=== PATIENT | female | born 1945 | race Caucasian/White ===

== ENCOUNTER 2016-12-10 11:14 | Inpatient (IN) | payer OTHER, MEDICARE ==
[2016-12-10] VITALS (10 sets, daily range): BP systolic 112–176; BP diastolic 66–83; PULSE 96–107; RESP 18–36; TEMP 98.1–99.9; O2SAT 83–98
[~2016-12-10] VITALS: Ht 167.6 cm; Wt 64.1 kg
[~2016-12-10 11:14] MED LIST: ADVA250A INH; ALBU17I INH; METH4PAK PO; OMEP20TA39 PO; SPIRCAP INH
[2016-12-10] MEDS ORDERED: SODIUM CHLORIDE 0.9% FLUSH 10 ML FLUSH IVF PRN (11:30)
[2016-12-10] MEDS ORDERED: SODIUM CHLOR 0.9% 1000 ML INJ 1,000 ML IV SCH (11:30)
[2016-12-10] MEDS ORDERED: methylPREDNISolone SOD SUCC 125 MG/2 ML VIAL IVP ONE (11:30)
--- NOTE | 2016-12-10 11:34 | PD ---
HPI Chief Complaint: Respiratory Distress Time Seen by Provider: 11:21 Travel History International Travel<30 days: No Contact w/Intl Traveler<30days: No Traveled to known affect area: No History of Present Illness HPI This 71-year-old woman history of COPD presents emergency department complaining of worsening shortness of breath. She states for the past couple weeks she's been a little bit worse than normal. She normally is on oxygen just as needed but has been having or continuously for the past several days, she's had minimal cough but no other URI symptoms. No productive cough. No fevers or chills. No chest pain. Today she had significant worsening shortness of breath and so came to the emergency department. She's been taking all her medications regularly. Despite that, today they were not helping. History Past Medical History Narrative Medical COPD GERD History depression Menopausal: Yes Social History Alcohol Use: Yes (FEW DRINKS ONCE PER WEEK) Tobacco Use: Yes (STILL SMOKING; SMOKED UP TO 1.5PKS/DAY X 40YRS) Allergies-Medications (Allergen,Severity, Reaction): Coded Allergies: Penicillin (Verified Adverse Reaction, Severe, FIGUEREDO, 12/10/16) Reported Meds & Prescriptions Reported Meds & Active Scripts Active Reported Lovastatin 10 Mg Tab 10 Mg PO HS Albuterol Neb (Albuterol Sulfate) 2.5 Mg/0.5 Ml Neb 2.5 Mg NEB Q3-4HR PRN Note: The Albuterol Sulfate Inhalation Solution is concentrated and must be diluted. Read complete instructions carefully before using. Prednisone 10 Mg Tab 10 Mg PO DAILY Omeprazole 20 Mg Tab 20 Mg PO DAILY Advair Diskus Inh (Fluticasone-Salmeterol Inh) 250-50 Mcg/Blist Aer 2 Puff INH BID Rinse mouth after use. Proventil Hfa 6.7 GM Inh (Albuterol Sulfate) 90 Mcg/Act Aer 2 Puff INH Q4-6H PRN Review of Systems Except as stated in HPI: all other systems reviewed are Neg Physical Exam Narrative GENERAL: Well-appearing 71-year-old woman, significant respiratory distress. Able to speak in short sentences. SKIN: Focused skin assessment warm/dry. HEAD: Atraumatic. Normocephalic. EYES: Pupils equal and round. No scleral icterus. No injection or drainage. ENT: No nasal bleeding or discharge. Mucous membranes pink and moist. NECK: Trachea midline. No JVD. CARDIOVASCULAR: Regular rate and rhythm. No murmur appreciated. RESPIRATORY: Moderate respiratory distress. Able to speak in short sentences. Pulmonary exam she has poor air movement with squeaking expiratory wheezing. GASTROINTESTINAL: Abdomen soft, non-tender, nondistended. Hepatic and splenic margins not palpable. MUSCULOSKELETAL: No obvious deformities. No edema. NEUROLOGICAL: Awake and alert. No obvious cranial nerve deficits. Motor grossly within normal limits. Normal speech. Data Data Last Documented VS Vital Signs Date Time Temp Pulse Resp B/P Pulse Ox O2 Delivery O2 Flow Rate FiO2 12/10/16 12:00 92 Nasal Cannula 2 12/10/16 11:35 104 30 12/10/16 11:23 99.9 176/83 Orders Complete Blood Count With Diff (12/10/16 11:21) Comprehensive Metabolic Panel (12/10/16 11:21) B-Type Natriuretic Peptide (12/10/16 11:21) Act Partial Throm Time (Ptt) (12/10/16 11:21) Prothrombin Time / Inr (Pt) (12/10/16 11:21) Magnesium (Mg) (12/10/16 11:21) Troponin I (12/10/16 11:21) Arterial Blood Gas (Abg) (12/10/16 11:21) Blood Culture (12/10/16 11:21) Iv Access Insert/Monitor (12/10/16 11:21) Electrocardiogram (12/10/16 11:21) Ecg Monitoring (12/10/16 11:21) Oximetry (12/10/16 11:21) Oxygen Administration (12/10/16 11:21) Chest, Single Ap (12/10/16 11:21) Sodium Chloride 0.9% Flush (Ns Flush) (12/10/16 11:30) Methylprednisolone So Succ Inj (Solumedr (12/10/16 11:30) Albuterol-Ipratropium Neb (Duoneb Neb) (12/10/16 11:30) Lactic Acid (12/10/16 11:21) Sodium Chlor 0.9% 1000 Ml Inj (Ns 1000 M (12/10/16 11:30) Azithromycin Inj (Zithromax Inj) (12/10/16 12:30) Admit Order (Ed Use Only) (12/10/16 ) Labs Laboratory Tests Test 12/10/16 12/10/16 11:20 11:40 White Blood Count 11.6 TH/MM3 Red Blood Count 4.97 MIL/MM3 Hemoglobin 14.2 GM/DL Hematocrit 43.0 % Mean Corpuscular Volume 86.4 FL Mean Corpuscular Hemoglobin 28.5 PG Mean Corpuscular Hemoglobin 33.0 % Concent Red Cell Distribution Width 15.1 % Platelet Count 310 TH/MM3 Mean Platelet Volume 8.3 FL Neutrophils (%) (Auto) 73.4 % Lymphocytes (%) (Auto) 11.2 % Monocytes (%) (Auto) 11.2 % Eosinophils (%) (Auto) 3.4 % Basophils (%) (Auto) 0.8 % Neutrophils # (Auto) 8.5 TH/MM3 Lymphocytes # (Auto) 1.3 TH/MM3 Monocytes # (Auto) 1.3 TH/MM3 Eosinophils # (Auto) 0.4 TH/MM3 Basophils # (Auto) 0.1 TH/MM3 CBC Comment DIFF FINAL Differential Comment Prothrombin Time 10.6 SEC Prothromb Time International 1.0 RATIO Ratio Activated Partial 24.7 SEC Thromboplast Time Sodium Level 142 MEQ/L Potassium Level 3.9 MEQ/L Chloride Level 100 MEQ/L Carbon Dioxide Level 37.1 MEQ/L Anion Gap 5 MEQ/L Blood Urea Nitrogen 12 MG/DL Creatinine 0.62 MG/DL Estimat Glomerular Filtration 95 ML/MIN Rate Random Glucose 96 MG/DL Lactic Acid Level 1.6 mmol/L Calcium Level 8.9 MG/DL Magnesium Level 2.3 MG/DL Total Bilirubin 0.6 MG/DL Aspartate Amino Transf 17 U/L (AST/SGOT) Alanine Aminotransferase 28 U/L (ALT/SGPT) Alkaline Phosphatase 80 U/L Troponin I LESS THAN 0.02 NG/ML B-Type Natriuretic Peptide 14 PG/ML Total Protein 6.8 GM/DL Albumin 2.9 GM/DL Blood Gas Puncture Site RT RADIAL Blood Gas Patient Temperature 98.6 Blood Gas HCO3 35 mmol/L Blood Gas Base Excess 9.9 mmol/L Blood Gas Oxygen Saturation 94 % Arterial Blood pH 7.39 Arterial Blood Partial 60 mmHG Pressure CO2 Arterial Blood Partial 82 mmHG Pressure O2 Arterial Blood Oxygen Content 18.5 Vol % Arterial Blood 2.4 % Carboxyhemoglobin Arterial Blood Methemoglobin 1.1 % Blood Gas Hemoglobin 13.9 G/DL Oxygen Delivery Device NASAL CANNULA Blood Gas Liter Flow 6 L/M [facility] Medical Decision Making Medical Screen Exam Complete: Yes Emergency Medical Condition: Yes Interpretation(s) My review of EKG: Sinus tachycardia rate of 101, leftward axis, normal intervals , no acute ischemia. AB.39/60/82/35.2, base excess 9.9 LABS: CBC remarkable for mild leukocytosis. CMP unremarkable. Troponin negative Lactate 1.6 Coags unremarkable. Chest x-ray: Negative for acute change. Differential Diagnosis COPD exacerbation, CHF, A. fib, pneumonia, URI, other Narrative Course Medical decision making INITIAL: 71-year-old woman history of severe COPD with oxygen at home, presents with worsening shortness of breath ongoing for a week or 2, abruptly worse this morning. We'll check labs, EKG, x-ray, reassess. FINAL: Repeat assessment patient's a little bit more comfortable but still tachypneic with pursed lip breathing mild diffuse wheezing. We'll recommend observation for further evaluation and treatment. Diagnosis Primary Impression: COPD with exacerbation Admitting Information Admitting Physician Requests: it Gucci Troncoso MD Dec 10, 2016 11:34
[2016-12-10] MEDS: RESP: ALBUTEROL 2.5 MG/IPRATROPIUM 0.5 MG NEB (SCH) INH ×4 (11:36→19:24)
[2016-12-10 11:44] LABS: AUTOMATED NEUTROPHIL # 8.5 TH/MM3 (1.8-7.7); BASOPHIL # 0.1 TH/MM3 (0-0.2); BASOPHIL % 0.8 % (0.0-2.0); EOSINOPHIL # 0.4 TH/MM3 (0-0.4); EOSINOPHIL % 3.4 % (0.0-4.0); HEMO FLAGS DIFF FINAL; LYMPH % 11.2 % (9.0-44.0); LYMPHOCYTE # 1.3 TH/MM3 (1.0-4.8); MEAN CELL VOLUME 86.4 FL (80.0-100.0); MEAN CORPUSCULAR HEMOGLOBIN 28.5 PG (27.0-34.0); MONO % 11.2 % (0.0-8.0); NEUT % 73.4 % (16.0-70.0); PLATELET COUNT 310 TH/MM3 (150-450); RED BLOOD COUNT 4.97 MIL/MM3 (4.00-5.30); RED CELL DISTRIBUTION WIDTH 15.1 % (11.6-17.2); WHITE BLOOD COUNT 11.6 TH/MM3 (4.0-11.0)
[2016-12-10 11:48] LABS: BLOOD GAS BASE EXCESS 9.9 mmol/L (-2-2); BLOOD GAS CARBOXYHEMOGLOBIN 2.4 % (0-4); BLOOD GAS HCO3 35 mmol/L (22-26); BLOOD GAS METHEMOGLOBIN 1.1 % (0-2); BLOOD GAS O2 HGB SATURATION 94 % (90-100); BLOOD GAS OXYGEN CONTENT 18.5 Vol % (12.0-20.0); BLOOD GAS PCO2 60 mmHG (38-42); BLOOD GAS PO2 82 mmHG (61-120); BLOOD GAS TOTAL HGB 13.9 G/DL (12.0-16.0); TEMP CORR TO 98.6
[2016-12-10 11:49] LABS: CRITICAL VALUE YES; DRAW SITE RT RADIAL; LITER FLOW 6 L/M; NUMBER OF ARTERIAL PUNCTURES 1; OXYGEN DEVICE NASAL CANNULA; STAT YES; ULNAR PULSE PRESENT
[2016-12-10 12:01] LABS: CHLORIDE 100 MEQ/L (98-107); POTASSIUM 3.9 MEQ/L (3.5-5.1); SODIUM (NA) 142 MEQ/L (136-145)
[2016-12-10 12:05] LABS: APTT (PATIENT) 24.7 SEC (24.3-30.1); PROTHROMBIN TIME - PATIENT 10.6 SEC (9.8-11.6)
[2016-12-10 12:07] LABS: ANION GAP 5 MEQ/L (5-15); BICARBONATE 37.1 MEQ/L (21.0-32.0); BLOOD UREA NITROGEN 12 MG/DL (7-18); MAGNESIUM 2.3 MG/DL (1.5-2.5)
[2016-12-10 12:10] LABS: ALT (GPT) 28 U/L (10-53); AST (GOT) 17 U/L (15-37); GLOMERULAR FILTRATION RATE 95 ML/MIN (>89)
[2016-12-10 12:11] LABS: TOTAL BILIRUBIN ADULT 0.6 MG/DL (0.2-1.0)
[2016-12-10 12:13] LABS: ALKALINE PHOSPHATASE 80 U/L (45-117)
[2016-12-10] MEDS ORDERED: ALBU.5I NEB (12:17)
[2016-12-10] MEDS ORDERED: OMEP20TA PO (12:17)
[2016-12-10] MEDS ORDERED: LOVA10TA PO (12:17)
[2016-12-10] MEDS ORDERED: ADVA250A INH (12:17)
[2016-12-10] MEDS ORDERED: PRED10 PO (12:17)
[2016-12-10] MEDS ORDERED: ALBU6.7H INH (12:17)
--- NOTE | 2016-12-10 12:19 | RADHPO ---
EXAM DATE/TIME: 12/10/2016 11:32 [place] COMPARISON: CHEST SINGLE AP, July 02, 2014, 16:52. INDICATIONS : Short of Breath MEDICAL HISTORY : Chronic obstructive pulmonary disease. SURGICAL HISTORY : None. ENCOUNTER: Initial ACUITY: 1 day PAIN SCORE: 0/10 LOCATION: Bilateral chest FINDINGS: Lungs are hyperexpanded with stable mild diffuse interstitial prominence. Redemonstration of minimal linear parenchymal opacities in the left lower lung zone likely reflecting atelectasis/scarring. Card iomediastinal contours are within normal limits. Remainder of the exam is unchanged. CONCLUSION: 1. Changes suggestive of obstructive pulmonary disease. 2. No acute abnormality or significant interval change. Mario Arvizu MD on December 10, 2016 at 12:16 Board Certified Radiologist. This report was verified electronically.
[2016-12-10] MEDS: NICOTINE 21 MG/24 HR PATCH TD SCH (12:30)
[2016-12-10] MEDS ORDERED: AZITHROMYCIN INJ 500 MG in SODIUM CHLOR 0.9% 250 ML INJ 250 ML IV ONE (12:30)
[2016-12-10] MEDS ORDERED: RESP: ALBUTEROL 2.5 MG/3 ML NEB (PRN) INH (12:30)
[2016-12-10] MEDS: HEPARIN SODIUM - SQ 10,000 UNITS/ML VIAL SQ SCH (13:04)
--- NOTE | 2016-12-10 13:39 | HHI.HP ---
[facility] Macario Ramesh MD Admission Diagnosis COPD exacerbation. Diagnoses: Chief Complaint: Shortness of breath Travel History International Travel<30 Days: No Contact w/Intl Traveler <30 Da: No Traveled to Known Affected Are: No History of Present Illness This is a 71-year-old female with hyperlipidemia, GERD and COPD on home oxygen who presents to the emergency department complaining of worsening shortness of breath the past 2 days. She states for the past couple weeks she's been having difficulty breathing. She is on oxygen as needed but has been using continuously for the past several days including nebulizations. She has nonproductive cough. No fevers or chills, chest pain, palpitations, dizziness, diaphoresis, nausea and vomiting. She was prescribed an unrecalled antibiotic and tapering prednisone by her manager relocation about 2 weeks ago. When she arrived in the emergency department, she was hypoxic oxygen saturations 93%. She received 3 doses of nebulizations, oxygen, IV Solu-Medrol and IV Zithromax. States she is feeling better oxygen down to 2 L but still having suprasternal retractions. All other systems reviewed negative Review of Systems Except as stated in HPI: all other systems reviewed are Neg Past Family Social History Past Medical History As previously mentioned Past Surgical History Denies Reported Medications Lovastatin 10 Mg Tab 10 Mg PO HS Albuterol Neb (Albuterol Sulfate) 2.5 Mg/0.5 Ml Neb 2.5 Mg NEB Q3-4HR PRN Note: The Albuterol Sulfate Inhalation Solution is concentrated and must be diluted. Read complete instructions carefully before using. Prednisone 10 Mg Tab 10 Mg PO DAILY Omeprazole 20 Mg Tab 20 Mg PO DAILY Advair Diskus Inh (Fluticasone-Salmeterol Inh) 250-50 Mcg/Blist Aer 2 Puff INH BID Rinse mouth after use. Proventil Hfa 6.7 GM Inh (Albuterol Sulfate) 90 Mcg/Act Aer 2 Puff INH Q4-6H PRN Allergies: Coded Allergies: Penicillin (Verified Adverse Reaction, Severe, FIGUEREDO, 12/10/16) Family History No heart disease Social History Occasional alcohol use. Quit smoking 10 years ago [id number] smoker Physical Exam Vital Signs Vital Signs Date Time Temp Pulse Resp B/P Pulse Ox O2 Delivery O2 Flow Rate FiO2 12/10/16 12:53 92 Nasal Cannula 3 12/10/16 12:51 100 24 119/66 88 Nasal Cannula 3 12/10/16 12:50 88 Nasal Cannula 3 12/10/16 12:00 92 Nasal Cannula 2 12/10/16 11:41 98 Nasal Cannula 6.00 12/10/16 11:35 104 30 91 Nasal Cannula 6 12/10/16 11:25 30 91 Nasal Cannula 6 12/10/16 11:25 91 Nasal Cannula 6 12/10/16 11:23 99.9 107 36 176/83 83 Physical Exam GENERAL: This is a well-nourished, well-developed patient, in mild respiratory distress. SKIN: No rashes, ecchymoses or lesions. Cool and dry. HEAD: Atraumatic. Normocephalic. No temporal or scalp tenderness. EYES: Pupils equal round and reactive. Extraocular motions intact. No scleral icterus. No injection or drainage. ENT: Nose without bleeding, purulent drainage or septal hematoma. Throat without erythema, tonsillar hypertrophy or exudate. Uvula midline. Airway patent. NECK: Trachea midline. No JVD or lymphadenopathy. Supple, nontender, no meningeal signs. CARDIOVASCULAR: Regular rate and rhythm without murmurs, gallops, or rubs. RESPIRATORY: Decreased Breath sounds equal bilaterally. No wheezes, rales, or rhonchi. Mild suprasternal retractions GASTROINTESTINAL: Abdomen soft, non-tender, nondistended. No guarding. MUSCULOSKELETAL: Extremities without clubbing, cyanosis, or edema. No joint tenderness, effusion, or edema noted. No calf tenderness. Negative Homans sign bilaterally. NEUROLOGICAL: Awake and alert. Cranial nerves II through XII intact. Motor and sensory grossly within normal limits. Five out of 5 muscle strength in all muscle groups. Normal speech. Laboratory Laboratory Tests Test 12/10/16 12/10/16 11:20 11:40 White Blood Count 11.6 Red Blood Count 4.97 Hemoglobin 14.2 Hematocrit 43.0 Mean Corpuscular Volume 86.4 Mean Corpuscular Hemoglobin 28.5 Mean Corpuscular Hemoglobin 33.0 Concent Red Cell Distribution Width 15.1 Platelet Count 310 Mean Platelet Volume 8.3 Neutrophils (%) (Auto) 73.4 Lymphocytes (%) (Auto) 11.2 Monocytes (%) (Auto) 11.2 Eosinophils (%) (Auto) 3.4 Basophils (%) (Auto) 0.8 Neutrophils # (Auto) 8.5 Lymphocytes # (Auto) 1.3 Monocytes # (Auto) 1.3 Eosinophils # (Auto) 0.4 Basophils # (Auto) 0.1 CBC Comment DIFF FINAL Differential Comment Prothrombin Time 10.6 Prothromb Time International 1.0 Ratio Activated Partial 24.7 Thromboplast Time Sodium Level 142 Potassium Level 3.9 Chloride Level 100 Carbon Dioxide Level 37.1 Anion Gap 5 Blood Urea Nitrogen 12 Creatinine 0.62 Estimat Glomerular Filtration 95 Rate Random Glucose 96 Lactic Acid Level 1.6 Calcium Level 8.9 Magnesium Level 2.3 Total Bilirubin 0.6 Aspartate Amino Transf 17 (AST/SGOT) Alanine Aminotransferase 28 (ALT/SGPT) Alkaline Phosphatase 80 Troponin I LESS THAN 0.02 B-Type Natriuretic Peptide 14 Total Protein 6.8 Albumin 2.9 Blood Gas Puncture Site RT RADIAL Blood Gas Patient Temperature 98.6 Blood Gas HCO3 35 Blood Gas Base Excess 9.9 Blood Gas Oxygen Saturation 94 Arterial Blood pH 7.39 Arterial Blood Partial 60 Pressure CO2 Arterial Blood Partial 82 Pressure O2 Arterial Blood Oxygen Content 18.5 Arterial Blood 2.4 Carboxyhemoglobin Arterial Blood Methemoglobin 1.1 Blood Gas Hemoglobin 13.9 Oxygen Delivery Device NASAL CANNULA Blood Gas Liter Flow 6 Date/Time Procedure Status Source Growth 12/10/16 12:45 Influenza Types A,B Antigen (MARIANA) - Final Complete Nasal Washing NEGATIVE FOR FLU A AND B ANTIGEN.... 12/10/16 11:30 Aerobic Blood Culture Received Blood Peripheral Pending 12/10/16 11:30 Anaerobic Blood Culture Received Blood Peripheral Pending Result Diagram: 12/10/16 1120 12/10/16 1120 Imaging Chest x-ray image interpreted by me with no acute findings noted infiltrate or effusion Last Impressions Chest X-Ray 12/10/16 1121 Signed Impressions: Service Date/Time: Saturday, December 10, 2016 11:32 - CONCLUSION: 1. Changes suggestive of obstructive pulmonary disease. 2. No acute abnormality or significant interval change. Mario Arvizu MD Assessment and Plan Problem List: (1) COPD with exacerbation ICD Code: J44.1 Status: Acute Assessment and Plan This is a 71-year-old female who presents to the emergency department complaining of worsening shortness of breath the past 2 days. She states for the past couple weeks she's been having difficulty breathing. She is on oxygen as needed but has been using continuously for the past several days including nebulizations. She has nonproductive cough. She was prescribed an unrecalled antibiotic and tapering prednisone by her manager relocation about 2 weeks ago. When she arrived in the emergency department, she was hypoxic oxygen saturations 93%. She received 3 doses of nebulizations, oxygen, IV Solu-Medrol and IV Zithromax. States she is feeling better oxygen down to 2 L but still having suprasternal retractions. COPD exacerbation with failed outpatient therapy. Patient will be admitted for further treatment. Oxygen to keep saturation at least 92%, BiPAP as needed, IV Zithromax, IV steroids and scheduled nebulizations. Obtain sputum culture, influenza screen and blood cultures. Blood. Consult patient's manager relocation Acute on chronic respiratory failure. Oxygen to keep saturation 92%. BiPAP as needed. SIRS secondary to above. Blood cultures if febrile Chronic medical conditions of hyperlipidemia and GERD. Stable continue outpatient medications as appropriate DVT prophylaxis with SCD and subcutaneous heparin Code Status Full Discussed Condition With Patient, RN, patient case coordinator and ER M.DAxel Physician Certification 2 Midnight Certification Type: Admission for Inpatient Services Order for Inpatient Services The services are ordered in accordance with Medicare regulations or non- Medicare payer requirements, as applicable. In the case of services not specified as inpatient-only, they are appropriately provided as inpatient services in accordance with the 2-midnight benchmark. Estimated LOS (days): 2 days is the estimated time the patient will need to remain in the hospital, assuming treatment plan goals are met and no additional complications. Post-Hospital Plan: Not yet determined Yariel Alexander MD Dec 10, 2016 13:39
[2016-12-10] MEDS: methylPREDNISolone SOD SUCC 125 MG/2 ML VIAL IVP SCH (17:33)
[2016-12-10] MEDS: SODIUM CHLORIDE 0.9% FLUSH 10 ML FLUSH IV FLUSH PRN (17:34)
[2016-12-10] MEDS: BUDESONIDE-FORMOTEROL 160/4.5 MCG INHALER INH SCH (20:44)
[2016-12-10] MEDS: PRAVASTATIN SOD 10 MG TAB PO SCH (20:44)
[2016-12-10] MEDS: SODIUM CHLORIDE 0.9% FLUSH 10 ML FLUSH IV FLUSH SCH (20:47)
[2016-12-10] MEDS: REMOVE OLD NICODERM (NICOTINE) PATCH T-DERMAL SCH (20:48)
[2016-12-10] MEDS: CLINDAMYCIN INJ 600 MG in SODIUM CHLORIDE 0.9% INJ 100 ML IV SCH (21:49)
[2016-12-11] VITALS (7 sets, daily range): BP systolic 123–133; BP diastolic 68–82; PULSE 80–96; RESP 20; TEMP 95.9–98.3; O2SAT 92–98
[2016-12-11] MEDS: HEPARIN SODIUM - SQ 10,000 UNITS/ML VIAL SQ SCH ×2 (01:35→15:32)
[2016-12-11] MEDS: methylPREDNISolone SOD SUCC 125 MG/2 ML VIAL IVP SCH ×4 (01:36→18:35)
[2016-12-11] MEDS: CLINDAMYCIN INJ 600 MG in SODIUM CHLORIDE 0.9% INJ 100 ML IV SCH ×3 (05:15→20:29)
--- NOTE | 2016-12-11 06:44 | MB ---
cc: CRISTO HIRSCH DATE OF CONSULTATION 12/10/2016 REASON FOR CONSULTATION Respiratory distress and COPD. HISTORY OF PRESENT ILLNESS This is a 71-year-old white female who has had a longstanding history of severe COPD with emphysema and recurrent bouts of bronchitis who was admitted through the emergency room with increasing shortness of breath, cough, wheezing and whitish yellow expectoration. The patient was sick for at least 2-3 weeks and she was seen as an outpatient and prescribed an oral antibiotic and prednisone for three weeks, but failed to improve. She has been on home oxygen at two liters but did not feel any better and just could not catch her breath and thus was brought to the emergency room. Upon arrival, a chest x-ray was done which showed no active infiltrates. The patient was hypoxic and placed on oxygen via nasal cannula and given IV Solu-Medrol and Zithromax. She is still quite short of breath and has wheezing, but has no fevers or chills. PAST HISTORY Her past history includes a history of: 1. Recurrent exacerbation of bronchitis 2. History of hypertension. 3. Hyperlipidemia 4. Gastroesophageal reflux 5. Previous pneumonia HABITS The patient smoked one to two packs per day for over 50 years and quit smoking many years ago. Occasional alcohol use. MEDICATIONS LIST 1. Advair disk 250/50 one puffs b.i.d. 2. Nebulized DuoNeb q.i.d. 3. Prednisone 20 mg day 4. Omeprazole 20 mg b.i.d. 5. Lovastatin 10 mg at bedtime FAMILY HISTORY Noncontributory ALLERGIES PENICILLIN REVIEW OF SYSTEMS The patient admits to weight loss. She has dizziness. She has sinus disease, postnasal drip, hoarseness and wheezing. He has epigastric distress and reflux and loss of appetite. He has had no leg swelling. Denies urinary symptoms or flank pains. She has some depression and anxiety. PHYSICAL EXAMINATION This is a thinly built elderly white female whose face is plethoric. She is dyspneic at rest using accessory muscles of respiration. VITAL SIGNS: blood pressure 130/70, pulse is 105, respirations 22, temperature 99.5. HEENT: Head normocephalic. Pupils are reactive and equal. Tongue is moist. Throat is mildly injected. Ears, no inflammation. NECK: Supple. No lymphadenopathy. No bruits or thyroid enlargement. CHEST: Decreased breath sounds at the bases. Expiratory wheezes in the upper lung valle with prolonged expiration. HEART: The heart sounds are regular, S1 and S2. No murmur. No S3. ABDOMEN: Soft, scaphoid. No masses or organomegaly or tenderness. Bowel sounds are active. EXTREMITIES: Mild varicosities. No edema. Reflexes 1+. She does move all extremities well with no gross motor or sensory deficits. SKIN: No lesions observed. RECTAL: Exam is deferred. IMPRESSION 1. COPD with acute exacerbation 2. Severe emphysema and chronic bronchitis and reactive airways PLAN The patient has been started on IV Zithromax 500 mg a day and nebulized DuoNeb solution q.i.d. We will continue with Solu-Medrol 60 mg IV q6, oxygen at 2-1/2 liter nasal cannula and Symbicort 160/4.5 two puffs twice a day. The patient will submit a sputum for culture, Gram stain and we will need a follow up chest x-ray in the a.m. as well as a bedside pulmonary function study. Thank you Dr. Alexander for this consultation. MD KIKO Cunningham/NEETU /6:46 PM /6:35 AM
[2016-12-11] MEDS: RESP: ALBUTEROL 2.5 MG/IPRATROPIUM 0.5 MG NEB (SCH) INH ×4 (07:54→19:14)
[2016-12-11] MEDS: PANTOPRAZOLE SOD 20 MG DELAYED RELEASE TAB PO SCH (09:31)
[2016-12-11] MEDS: BUDESONIDE-FORMOTEROL 160/4.5 MCG INHALER INH SCH ×2 (09:31→20:29)
[2016-12-11] MEDS: NICOTINE 21 MG/24 HR PATCH TD SCH (09:32)
[2016-12-11] MEDS: SODIUM CHLORIDE 0.9% FLUSH 10 ML FLUSH IV FLUSH SCH ×2 (09:32→20:29)
--- NOTE | 2016-12-11 10:41 | HHI.PR ---
Subjective Remarks Follow-up COPD exacerbation. Still having dyspnea on exertion. Patient was actively wheezing and had supraclavicular retractions when I examined her. Discussed with RN and respiratory therapist Objective Vitals Vital Signs Date Time Temp Pulse Resp B/P Pulse Ox O2 Delivery O2 Flow Rate FiO2 12/11/16 08:00 97.9 85 20 132/72 94 12/11/16 07:56 98 Nasal Cannula 3.00 12/11/16 00:00 95.9 80 20 127/82 93 12/10/16 20:00 98.1 96 20 130/78 92 12/10/16 19:25 93 Nasal Cannula 3.00 12/10/16 16:28 98.9 101 18 116/68 91 12/10/16 14:11 99.7 97 24 129/77 92 12/10/16 13:31 28 91 Nasal Cannula 3 12/10/16 13:20 112/67 12/10/16 12:53 92 Nasal Cannula 3 12/10/16 12:51 100 24 119/66 88 Nasal Cannula 3 12/10/16 12:50 88 Nasal Cannula 3 12/10/16 12:00 92 Nasal Cannula 2 12/10/16 11:41 98 Nasal Cannula 6.00 12/10/16 11:35 104 30 91 Nasal Cannula 6 12/10/16 11:25 30 91 Nasal Cannula 6 12/10/16 11:25 91 Nasal Cannula 6 12/10/16 11:23 99.9 107 36 176/83 83 I/O 12/10/16 12/10/16 12/10/16 12/11/16 12/11/16 12/11/16 07:00 15:00 23:00 07:00 15:00 23:00 Intake Total 1000 ml 98 ml 99 ml Balance 1000 ml 98 ml 99 ml Intake IV Total 1000 ml 98 ml 99 ml Result Diagram: 12/10/16 1120 12/10/16 1120 Imaging Last Impressions Chest X-Ray 12/10/16 1121 Signed Impressions: Service Date/Time: Saturday, December 10, 2016 11:32 - CONCLUSION: 1. Changes suggestive of obstructive pulmonary disease. 2. No acute abnormality or significant interval change. Mario Arvizu MD Objective Remarks GENERAL: This is a well-nourished, well-developed patient, in mild respiratory distress. SKIN: No rashes, ecchymoses or lesions. Cool and dry. HEAD: Atraumatic. Normocephalic. No temporal or scalp tenderness. EYES: Pupils equal round and reactive. Extraocular motions intact. No scleral icterus. No injection or drainage. ENT: Nose without bleeding, purulent drainage or septal hematoma. Throat without erythema, tonsillar hypertrophy or exudate. Uvula midline. Airway patent. NECK: Trachea midline. No JVD or lymphadenopathy. Supple, nontender, no meningeal signs. CARDIOVASCULAR: Regular rate and rhythm without murmurs, gallops, or rubs. RESPIRATORY: Decreased Breath sounds equal bilaterally. Expiratory wheezes with suprasternal retractions GASTROINTESTINAL: Abdomen soft, non-tender, nondistended. No guarding. MUSCULOSKELETAL: Extremities without clubbing, cyanosis, or edema. No joint tenderness, effusion, or edema noted. No calf tenderness. Negative Homans sign bilaterally. NEUROLOGICAL: Awake and alert. Cranial nerves II through XII intact. Motor and sensory grossly within normal limits. Five out of 5 muscle strength in all muscle groups. Normal speech. Procedures None A/P Problem List: (1) COPD with exacerbation ICD Code: J44.1 Status: Acute Assessment and Plan This is a 71-year-old female who presents to the emergency department complaining of worsening shortness of breath the past 2 days. She states for the past couple weeks she's been having difficulty breathing. She is on oxygen as needed but has been using continuously for the past several days including nebulizations. She has nonproductive cough. She was prescribed an unrecalled antibiotic and tapering prednisone by her space and storage clerk about 2 weeks ago. When she arrived in the emergency department, she was hypoxic oxygen saturations 93%. She received 3 doses of nebulizations, oxygen, IV Solu-Medrol and IV Zithromax. States she is feeling better oxygen down to 2 L but still having suprasternal retractions. COPD exacerbation with failed outpatient therapy. Negative for flu. Still with active wheezing and supraclavicular retractions. Stat nebulization treatment and increase scheduled nebulizations every 4 hours while awake. Oxygen to keep saturation at least 92%, BiPAP as needed, IV Zithromax, IV clindamycin and IV steroids. Obtain sputum culture, and blood cultures if febrile. Consult patient's space and storage clerk Acute on chronic respiratory failure. Oxygen to keep saturation 92%. BiPAP as needed. SIRS secondary to above. Blood cultures if febrile Chronic medical conditions of hyperlipidemia and GERD. Stable continue outpatient medications as appropriate DVT prophylaxis with SCD and subcutaneous heparin Discharge Planning Discharge in 1-2 days. Patient has home oxygen Yariel Alexander MD Dec 11, 2016 10:40
--- NOTE | 2016-12-11 10:41 | HHI.DCPOC ---
Discharge Care Plan Diagnosis: (1) COPD with exacerbation Your Health Problems Are: Difficulty with ADL Exercise Tolerance Goals to Promote Your Health * To prevent worsening of your condition and complications * To maintain your health at the optimal level Directions to Meet Your Goals Take your medications as prescribed Follow your dietary instruction Follow activity as directed Keep your appointments as scheduled Take your immunizations and boosters as scheduled If your symptoms worsen call your PCP, if no PCP go to Urgent Care Center or Emergency Room Smoking is Dangerous to Your Health. Avoid second hand smoke Call the 24-hour hour crisis hotline for domestic abuse at Yariel Alexander MD Dec 11, 2016 10:41
[2016-12-11] MEDS: AZITHROMYCIN INJ 500 MG in SODIUM CHLOR 0.9% 250 ML INJ 250 ML IV SCH (15:32)
[2016-12-11] MEDS: SODIUM CHLORIDE 0.9% FLUSH 10 ML FLUSH IV FLUSH PRN (18:35)
[2016-12-11] MEDS: REMOVE OLD NICODERM (NICOTINE) PATCH T-DERMAL SCH (20:30)
[2016-12-11] MEDS: PRAVASTATIN SOD 10 MG TAB PO SCH (20:30)
--- NOTE | 2016-12-11 21:56 | EKG ---
Date Performed: 12/10/2016 Time Performed: 11:46:32 PTAGE: 71 years EKG: Sinus tachycardia Possible left atrial abnormality Since previous tracing, no significant c hange noted Borderline ECG PREVIOUS TRACING : 07/02/2014 16.26 DOCTOR: Adalberto Pickard Interpretating Date/Time 12/11/2016 21:54:16
[2016-12-12] VITALS: BP 114/75; PULSE 88; RESP 20; TEMP 96.5; O2SAT 92
[2016-12-12] MEDS: HEPARIN SODIUM - SQ 10,000 UNITS/ML VIAL SQ SCH ×2 (00:37→11:39)
[2016-12-12] MEDS: methylPREDNISolone SOD SUCC 125 MG/2 ML VIAL IVP SCH ×2 (00:37→05:34)
[2016-12-12] MEDS: CLINDAMYCIN INJ 600 MG in SODIUM CHLORIDE 0.9% INJ 100 ML IV SCH (05:33)
[2016-12-12] MEDS: RESP: ALBUTEROL 2.5 MG/IPRATROPIUM 0.5 MG NEB (SCH) INH ×2 (07:28→11:12)
[2016-12-12 07:30] VITALS: O2SAT 94
[2016-12-12 08:00] VITALS: BP 131/71; PULSE 104; RESP 24; TEMP 97.9; O2SAT 91
[2016-12-12] MEDS: NICOTINE 21 MG/24 HR PATCH TD SCH ×2 (09:00→09:19)
[2016-12-12] MEDS: PANTOPRAZOLE SOD 20 MG DELAYED RELEASE TAB PO SCH (09:18)
[2016-12-12] MEDS: SODIUM CHLORIDE 0.9% FLUSH 10 ML FLUSH IV FLUSH SCH (09:18)
[2016-12-12] MEDS: BUDESONIDE-FORMOTEROL 160/4.5 MCG INHALER INH SCH (09:18)
[2016-12-12] MEDS: AZITHROMYCIN INJ 500 MG in SODIUM CHLOR 0.9% 250 ML INJ 250 ML IV SCH (11:39)
[2016-12-12] MEDS ORDERED: PRED20 PO (12:00)
[2016-12-12] MEDS ORDERED: CLIN1CAP6 PO (12:00)
--- NOTE | 2016-12-12 12:05 | HHI.DS ---
Discharge Summary Admission Date Dec 10, 2016 at 13:28 Discharge Date: Dec 12, 2016 Admitting Diagnosis COPD exacerbation. (1) COPD with exacerbation ICD Code: J44.1 Procedures None Brief History - From Admission History of present illness from the admitting physician This is a 71-year-old female with hyperlipidemia, GERD and COPD on home oxygen who presents to the emergency department complaining of worsening shortness of breath the past 2 days. She states for the past couple weeks she's been having difficulty breathing. She is on oxygen as needed but has been using continuously for the past several days including nebulizations. She has nonproductive cough. No fevers or chills, chest pain, palpitations, dizziness, diaphoresis, nausea and vomiting. She was prescribed an unrecalled antibiotic and tapering prednisone by her oil and gas lease pumper about 2 weeks ago. When she arrived in the emergency department, she was hypoxic oxygen saturations 93%. She received 3 doses of nebulizations, oxygen, IV Solu-Medrol and IV Zithromax. States she is feeling better oxygen down to 2 L but still having suprasternal retractions. All other systems reviewed negative CBC/BMP: 12/10/16 1120 12/10/16 1120 Significant Findings Laboratory Tests Test 12/10/16 12/10/16 11:20 11:40 White Blood Count 11.6 TH/MM3 (4.0-11.0) Neutrophils (%) (Auto) 73.4 % (16.0-70.0) Monocytes (%) (Auto) 11.2 % (0.0-8.0) Neutrophils # (Auto) 8.5 TH/MM3 (1.8-7.7) Monocytes # (Auto) 1.3 TH/MM3 (0-0.9) Carbon Dioxide Level 37.1 MEQ/L (21.0-32.0) Troponin I LESS THAN 0.02 NG/ML (0.02-0.05) Albumin 2.9 GM/DL (3.4-5.0) Blood Gas HCO3 35 mmol/L (22-26) Blood Gas Base Excess 9.9 mmol/L (-2-2) Arterial Blood Partial 60 mmHG (38-42) Pressure CO2 Imaging Last Impressions Chest X-Ray 12/10/16 1121 Signed Impressions: Service Date/Time: Saturday, December 10, 2016 11:32 - CONCLUSION: 1. Changes suggestive of obstructive pulmonary disease. 2. No acute abnormality or significant interval change. Mario Arvizu MD PE at Discharge GENERAL: This is a well-nourished, well-developed patient, in mild respiratory distress. SKIN: No rashes, ecchymoses or lesions. Cool and dry. HEAD: Atraumatic. Normocephalic. No temporal or scalp tenderness. EYES: Pupils equal round and reactive. Extraocular motions intact. No scleral icterus. No injection or drainage. ENT: Nose without bleeding, purulent drainage or septal hematoma. Throat without erythema, tonsillar hypertrophy or exudate. Uvula midline. Airway patent. NECK: Trachea midline. No JVD or lymphadenopathy. Supple, nontender, no meningeal signs. CARDIOVASCULAR: Regular rate and rhythm without murmurs, gallops, or rubs. RESPIRATORY: Decreased Breath sounds equal bilaterally. Expiratory wheezes with suprasternal retractions GASTROINTESTINAL: Abdomen soft, non-tender, nondistended. No guarding. MUSCULOSKELETAL: Extremities without clubbing, cyanosis, or edema. No joint tenderness, effusion, or edema noted. No calf tenderness. Negative Homans sign bilaterally. NEUROLOGICAL: Awake and alert. Cranial nerves II through XII intact. Motor and sensory grossly within normal limits. Five out of 5 muscle strength in all muscle groups. Normal speech. Pt update on day of discharge Patient reports she is feeling back to baseline. She states she has oxygen at home. She wants to be discharged home. No fevers or chills. Hospital Course 71-year-old female who presents to the emergency department complaining of worsening shortness of breath the past 2 days. She states for the past couple weeks she's been having difficulty breathing. She is on oxygen as needed but has been using continuously for the past several days including nebulizations. She has nonproductive cough. She was prescribed an unknown antibiotic and tapering prednisone by her oil and gas lease pumper about 2 weeks ago. When she arrived in the emergency department, she was hypoxic oxygen saturations 93%. Evaluation and treatment course detailed below: COPD exacerbation with failed outpatient therapy. Negative for flu. Patient was followed by her oil and gas lease pumper. She was treated with IV Solu-Medrol, IV clindamycin, and breathing treatments. Her respiratory status improved. She is discharged home on antibiotics and a prednisone taper. She will follow-up outpatient with pulmonology. Chronic medical conditions of hyperlipidemia and GERD. Stable continue outpatient medications as appropriate Extensively discussed discharge planning and outpatient follow-up with the patient. All questions were answered. Pt Condition on Discharge: Stable Discharge Disposition: Discharge Home Discharge Time: > 30 minutes Discharge Instructions DIET: Follow Instructions for: Heart Healthy Diet Activities you can perform: Regular-No Restrictions Follow up Referrals: PCP Follow-up - 2-3 Days Pulmonology - 1 Week New Medications: Clindamycin (Clindamycin) 300 Mg Cap 300 MG PO TID Infection #21 Ref 0 CAP Changed Medications: Prednisone (Prednisone) 20 Mg Tab 20 MG PO DIRECTED Take 60 MG daily x 4 days, then 40 MG x 4 days, then 20 MG daily x 4 days. #24 Ref 0 TAB (Changed from: Prednisone 10 Mg Tab 10 Mg PO DAILY Ref 0) Continued Medications: Albuterol 6.7 GM Inh (Proventil Hfa 6.7 GM Inh) 90 Mcg/Act Aer 2 PUFF INH Q4-6H PRN SHORTNESS OF BREATH #1 Ref 0 INHALER Albuterol Neb (Albuterol Neb) 2.5 Mg/0.5 Ml Neb 2.5 MG NEB Q3-4HR Note: The Albuterol Sulfate Inhalation Solution is concentrated and must be diluted. Read complete instructions carefully before using. PRN SHORTNESS OF BREATH EA Fluticasone-Salmeterol Inh (Advair Diskus Inh) 250-50 Mcg/Blist Aer 2 PUFF INH BID Rinse mouth after use. #1 Ref 0 INHALER Lovastatin (Lovastatin) 10 Mg Tab 10 MG PO HS Cholesterol Management #30 Ref 0 TAB Omeprazole (Omeprazole) 20 Mg Tab 20 MG PO DAILY #30 Ref 0 TAB Valeria Cai MD Dec 12, 2016 12:05
== END 2016-12-12 12:46 | disposition home or self-care (01) | DRG 190 ==
LOC: PHED 11:14 → PHEDA 12:31 → OBSVTOIN 13:28 → PH3A 14:00
PROVIDERS: ADMIT Family Medicine; ATTEND Family Medicine
DX: J44.1 Chronic obstructive pulmonary disease with (acute) exacerbation (principal); J96.21 Acute and chronic respiratory failure with hypoxia; R65.10 Systemic inflammatory response syndrome (SIRS) of non-infectious origin without acute organ dysfunction; Z99.81 Dependence on supplemental oxygen; K21.9 Gastro-esophageal reflux disease without esophagitis; F32.9 Major depressive disorder, single episode, unspecified; E78.5 Hyperlipidemia, unspecified; Z87.891 Personal history of nicotine dependence
CPT/HCPCS: 36600; 71010; 80053; 82805; 83605; 83735; 83880; 84484; 85025; 85610; 85730; 87040; 87804; 93005; 94150; 94640; 94664; 96361; 96374; J0456; J1644; J2930; J7030; J7050